=== PATIENT | male | born 1980 | race Caucasian/White ===

== ENCOUNTER 2021-06-01 20:40 | Emergency (ER) | payer SELFPAY ==
[2021-06-01 20:55] VITALS: BP 137/76; PULSE 92; RESP 16; TEMP 37.4; O2SAT 97; BMI 25.1
--- NOTE | 2021-06-01 20:56 | XRR_ITS ---
PROCEDURE INFORMATION: Exam: XR Chest Exam date and time: 06/01/2021 8:56 PM Age: 40 years old Clinical indication: Pain; Right-sided; Patient HX: PT. [place] pop on RT. Ribs TECHNIQUE: Imaging protocol: XR of the chest. Views: 2 views. COMPARISON: No relevant prior studies available. FINDINGS: Lungs: Unremarkable. No consolidation. Pleural spaces: Unremarkable. No pleural effusion. No pneumothorax. Heart/Mediastinum: Unremarkable. No cardiomegaly. Bones/joints: No evidence of fracture. XR/XR chest 2V* [id number] IMPRESSION: No acute findings.
--- NOTE | 2021-06-01 21:30 | W.ED.SOB ---
HPI - SOB/Dyspnea General: Chief Complaint: Shortness of Breath/Dyspnea Stated Complaint: Rt ribs pain Time Seen by Provider: 06/01/21 21:30 History of Present Illness: HPI Narrative: Patient reports last week he was working on his vehicle and felt a pop to the right rib area. Since then patient has had discomfort to the ribs but has continued activity with minimal reduction. Patient reports some soreness in his right anterior ribs and was told by his boss at work that he needed to be evaluated in order to continue working. Patient appears well. Patient appears no acute distress. Review of Systems General: Reports: 10 or more systems reviewed and unremarkable except in HPI and below Musc: Reports: other (Right rib pain) Physical Exam Const: COMMON NORMALS: no acute distress and patient oriented x3 GENERAL APPEARANCE: cooperative HENMT: COMMON NORMALS: normocephalic and Normal external nose present HEAD & SCALP: normal to inspection and normocephalic NOSE: Normal external nose present Eye: GENERAL EYE: appearance normal, both eyes and all related structures Neck/C-Spine: COMMON NORMALS: full ROM Chest: OTHER: Right anterior rib tenderness, no deformity, no ecchymosis or flailing of the chest. Resp: COMMON NORMALS: normal respiratory effort EFFORT & INSPECTION: Yes able to speak in complete sentences Cardio: COMMON NORMALS: regular rate and regular rhythm RATE: regular rate RHYTHM: regular rhythm GI: COMMON NORMALS: non-tender Back/Pelvis: COMMON NORMALS: thoracic and lumbar spine normal to inspection Extremity: COMMON NORMALS: normal to inspection Neuro: COMMON NORMALS: patient oriented x3 and moves all extremities Psych: COMMON NORMALS: mental status grossly normal and cooperative Skin: COMMON NORMALS: no rashes or lesions noted GENERAL SKIN EXAM: no rashes or lesions noted Course Vital Signs: Vital signs: Vital Signs Temperature 99.4 F 06/01/21 20:55 Pulse Rate 92 06/01/21 20:55 Respiratory Rate 16 06/01/21 20:55 Blood Pressure 137/76 06/01/21 20:55 Pulse Oximetry 97 06/01/21 20:55 MDM - SOB/Dyspnea MDM Narrative: Medical decision making narrative: Patient comes in today for complaints of injury to the right ribs. On exam patient appears well. Patient has some mild tenderness in the right anterior rib without any signs of flailing or ecchymosis. Differential diagnosis includes but not limited to rib fracture, contusion, costochondritis. X-rays were negative for any signs of fracture or lung abnormality. Reviewed exam with patient with recommendations for treatment and follow-up. Patient reported understanding. Discharge Plan Discharge Patient Disposition: Home Clinical Impression: Rib pain on right side Condition: Stable Discharge Orders: Discharge ED (Routine); Ordered 06/01/21 Ordered By: Robert Alejandro Discharge Diet: Usual diet Discharge Activity: Increase activity as tolerated Patient Instructions: Musculoskeletal Pain (ED), Opioid Safety Activity Restrictions/Additional Instructions: Activity as tolerated. Use ice or heat for comfort. Use Tylenol and ibuprofen for other pain. Follow-up with primary care as needed. Return to the ER for new concerns. Stand Alone Forms: Work/School Release Coding Level of Care Code ED [employer] for [employer]
[2021-06-01 21:45] VITALS: PULSE 89; RESP 16; TEMP 37.2; O2SAT 97
== END 2021-06-01 21:46 | disposition home or self-care (01) ==
PROVIDERS: Emergency Provider Nurse Practitioner Family
DX: R07.81 Pleurodynia (principal)
CPT/HCPCS: 71046; 99282